=== PATIENT | male | born 1980 | race Caucasian/White ===

== ENCOUNTER → 2018-01-24 | Outpatient (CLI) | payer OTHER ==
[~2018-01-24] MED LIST: CYMBALTA30 MG PO
== END | disposition home or self-care (01) ==
LOC: CDC 11:00
DX: Z01.810 Encounter for preprocedural cardiovascular examination (principal); K42.9 Umbilical hernia without obstruction or gangrene
CPT/HCPCS: 93000

== ENCOUNTER 2018-02-04 05:27 | Day surgery (SDC) | payer OTHER ==
[~2018-02-04] VITALS: Ht 180.3 cm; Wt 116.1 kg
[~2018-02-04 05:27] MED LIST changes: +ALEVE220 MG PO; +EXCEDRIN MIGRA1 EAC3 PO
[2018-02-04 05:56] VITALS: BP 134/70
[2018-02-04] MEDS ORDERED: PERCOCET 5/31 TABLET PO (09:17)
[2018-02-04] MEDS ORDERED: COLACE100 MG PO (09:17)
[2018-02-04 11:15] VITALS: BP 95/54
[2018-02-04 12:20] VITALS: BP 111/64
[2018-02-04 13:48] VITALS: BP 116/62
== END 2018-02-04 14:07 | disposition home or self-care (01) ==
LOC: SDC 05:27
PROC: 0WUF4JZ Supplement Abdominal Wall with Synthetic Substitute, Percutaneous Endoscopic Approach (ICD-10-PCS; principal; 2018-02-04)
DX: K42.9 Umbilical hernia without obstruction or gangrene (principal); E66.9 Obesity, unspecified; Z68.35 Body mass index [BMI] 35.0-35.9, adult; F32.9 Major depressive disorder, single episode, unspecified; F41.9 Anxiety disorder, unspecified
CPT/HCPCS: 88302; C1781; J0330; J0690; J1170; J1885; J2001; J2250; J2710; J2795; J3010; J3475